=== PATIENT | female | born 1990 | race Caucasian/White ===

== ENCOUNTER 2016-10-07 10:52 | Emergency (ER) | payer OTHER ==
[~2016-10-07] VITALS: Ht 167.6 cm; Wt 80.7 kg
[2016-10-07] MEDS ORDERED: PRENTAB52 PO (11:00)
--- NOTE | 2016-10-07 12:31 | REP ---
Clinical: Trauma. Technique: AP, lateral, bilateral oblique views of the right ankle. Findings: Lateral soft tissue swelling consistent with inversion injury. No acute fracture or dislocation. Joint spaces and ankle mortise intact. Impression: Lateral swelling. No acute fracture or dislocation. Signed by David Flowers MD 10/07/2016 12:23 P
[2016-10-07] MEDS ORDERED: TYLE325C PO (12:37)
[2016-10-07] MEDS ORDERED: NAPR500T2 PO (12:37)
[2016-10-07] MEDS ORDERED: KETOROLAC 60 MG/2 ML VIAL (J1885) IM ONE (12:45)
[2016-10-07 13:05] VITALS: BP 134/79
== END 2016-10-07 13:32 | disposition home or self-care (01) ==
LOC: M ED 11:30
DX: S93.401A Sprain of unspecified ligament of right ankle, initial encounter (principal); X58.XXXA Exposure to other specified factors, initial encounter; Y92.019 Unspecified place in single-family (private) house as the place of occurrence of the external cause; Y93.89 Activity, other specified; Y99.8 Other external cause status; Z79.899 Other long term (current) drug therapy; Z88.5 Allergy status to narcotic agent
CPT/HCPCS: 73610; 96372; 99283; J1885

== ENCOUNTER → 2017-04-19 | Outpatient (REF) | payer OTHER ==
[~2017-04-19] MED LIST: NAPR500T3 PO; PRENTAB52 PO; TYLE325C PO
== END ==
LOC: M LAB REF 16:16
PROVIDERS: ATTEND Nurse Practitioner Family
DX: Z32.01 Encounter for pregnancy test, result positive (principal)

== ENCOUNTER → 2017-06-17 | Outpatient (CLI) | payer OTHER ==
[2017-06-17 14:57] LABS: MEAN CORPUSCULAR HEMOGLOBIN 29.7 pg (27.0-33.0); MEAN CORPUSCULAR HGB CONC 33.5 g/dl (32.0-36.5); MEAN CORPUSCULAR VOLUME 88.7 fl (80.0-96.0); PLATELET COUNT, AUTOMATED 326 10^3/uL (150-450); WHITE BLOOD COUNT 9.3 10^3/uL (4.0-10.0)
[2017-06-17 15:20] LABS: ALT/SGPT 38 U/L (12-78); AST/SGOT 15 U/L (7-37); BILIRUBIN,TOTAL 0.2 MG/DL (0.2-1.0); CREATININE FOR GFR 0.51 MG/DL (0.55-1.02); GLOMERULAR FILTRATION RATE > 60.0 (>60); URIC ACID 2.8 MG/DL (2.6-6.0)
== END ==
LOC: M LAB 14:26
PROVIDERS: ATTEND Obstetrics & Gynecology
DX: O16.1 Unspecified maternal hypertension, first trimester (principal)

== ENCOUNTER → 2017-07-23 | Outpatient (CLI) | payer OTHER | LOC: M RAD 16:08 | DX: O10.012 Pre-existing essential hypertension complicating pregnancy, second trimester (principal); Z3A.18 18 weeks gestation of pregnancy | CPT/HCPCS: 76811 ==

== ENCOUNTER → 2017-08-08 | Outpatient (CLI) | payer OTHER | LOC: M LAB 14:08 | DX: Z36.89 Encounter for other specified antenatal screening (principal); Z3A.00 Weeks of gestation of pregnancy not specified | CPT/HCPCS: 36415 ==

== ENCOUNTER → 2017-08-26 | Outpatient (CLI) | payer OTHER | LOC: M RAD 08:53 | DX: O10.012 Pre-existing essential hypertension complicating pregnancy, second trimester (principal) ==

== ENCOUNTER → 2017-09-17 | Outpatient (CLI) | payer OTHER ==
[2017-09-17 15:41] LABS: BASO % 0.4 % (0.0-1.0); EOS # 0.1 10^3/uL (0.0-0.50); EOS % 0.5 % (0.0-3.0); HEMATOCRIT 36.1 % (36.0-47.0); IMMATURE GRANULOCYTE % 0.5 % (0-3.0); LYMPH # 2.7 10^3/uL (1.5-6.5); LYMPH % 25.7 % (24.0-44.0); MEAN CORPUSCULAR HEMOGLOBIN 29.9 pg (27.0-33.0); MEAN CORPUSCULAR HGB CONC 33.2 g/dl (32.0-36.5); MEAN CORPUSCULAR VOLUME 89.8 fl (80.0-96.0); MONO # 0.6 10^3/uL (0.0-0.8); MONO % 5.7 % (0.0-5.0); NEUTROPHILS % 67.2 % (36.0-66.0); PLATELET COUNT, AUTOMATED 310 10^3/uL (150-450); RED BLOOD COUNT 4.02 10^6/uL (4.00-5.40); RED CELL DISTRIBUTION WIDTH 13.8 % (11.5-14.5); WHITE BLOOD COUNT 10.4 10^3/uL (4.0-10.0)
[2017-09-17 16:02] LABS: GLUCOSE CHALLENGE TEST 1 HOUR 129 MG/DL (LESS THAN 140)
== END ==
LOC: M LAB 14:06
DX: Z34.82 Encounter for supervision of other normal pregnancy, second trimester (principal)

== ENCOUNTER → 2017-11-29 | Outpatient (REF) | payer OTHER | LOC: M LAB REF 17:10 | DX: Z34.83 Encounter for supervision of other normal pregnancy, third trimester (principal) ==

== ENCOUNTER 2017-12-20 10:05 | Inpatient (IN) | payer OTHER ==
[2017-12-20] MEDS: miSOPROStol 50 MCG 1/2 TAB (S0191) PO ×2 (11:14→15:18)
[2017-12-20 11:25] LABS: HEMATOCRIT 40.4 % (36.0-47.0); HEMOGLOBIN 13.5 g/dl (12.0-15.5); MEAN CORPUSCULAR HEMOGLOBIN 28.4 pg (27.0-33.0); MEAN CORPUSCULAR HGB CONC 33.4 g/dl (32.0-36.5); MEAN CORPUSCULAR VOLUME 85.1 fl (80.0-96.0); PLATELET COUNT, AUTOMATED 289 10^3/uL (150-450); RED BLOOD COUNT 4.75 10^6/uL (4.00-5.40); RED CELL DISTRIBUTION WIDTH 14.1 % (11.5-14.5); WHITE BLOOD COUNT 9.7 10^3/uL (4.0-10.0)
[2017-12-20 11:54] LABS: ALT/SGPT 18 U/L (12-78); AST/SGOT 14 U/L (7-37); BILIRUBIN,TOTAL 0.3 MG/DL (0.2-1.0); CREATININE FOR GFR 0.71 MG/DL (0.55-1.30); GLOMERULAR FILTRATION RATE > 60.0 (>60); LDH LACTATE DEHYDROGENASE 181 U/L (84-246); URIC ACID 5.2 MG/DL (2.6-6.0)
[2017-12-20 12:25] LABS: CREATININE,RANDOM URINE 85.4 MG/DL
[2017-12-20 12:25] LABS: TOTAL PROTEIN,RANDOM URINE 10.8 MG/DL (0.0-12.0)
[2017-12-20] MEDS: LR 1,000 ML IV (19:12)
[2017-12-20] MEDS ORDERED: OXYTOCIN DRIP 30 UNITS in APPROPRIATE DILUENT 1 EA IV (19:15)
[2017-12-20 19:56] LABS: HEMATOCRIT 36.4 % (36.0-47.0); HEMOGLOBIN 12.3 g/dl (12.0-15.5); MEAN CORPUSCULAR HEMOGLOBIN 28.7 pg (27.0-33.0); MEAN CORPUSCULAR HGB CONC 33.8 g/dl (32.0-36.5); PLATELET COUNT, AUTOMATED 263 10^3/uL (150-450); RED BLOOD COUNT 4.28 10^6/uL (4.00-5.40); WHITE BLOOD COUNT 10.3 10^3/uL (4.0-10.0)
[2017-12-20] MEDS ORDERED: FENTANYL 2MCG/ML ROPIVACAINE 0.2% IN 0.9% NACL 200ML IVBAG As Ordered (21:06)
[2017-12-20] MEDS ORDERED: REFRIGERATOR IV KEYS XX (22:00)
[2017-12-20] MEDS ORDERED: ePHEDrine SULFATE 25 MG/5 ML(5MG/ML) SYRINGE IV (22:00)
[2017-12-20] MEDS ORDERED: FENTANYL/ROPIVACAINE/NACL BAG 200 ML EPIDURAL (22:00)
[2017-12-20] MEDS ORDERED: EPIDURAL/PCA KEYS XX (22:00)
[2017-12-20] MEDS ORDERED: ONDANSETRON 4MG/2ML VIAL (J2405) IV (22:00)
[2017-12-20] MEDS ORDERED: diphenhydrAMINE INJ 50MG/ML VIAL (J1200) IV (22:00)
[2017-12-20] MEDS ORDERED: LACTATED RINGER'S 1000 ML IV (22:00)
[2017-12-20] MEDS ORDERED: EPIDURAL COMMENT XX (22:00)
[2017-12-20] MEDS ORDERED: NALOXONE INJ 0.4 MG/1 ML VIAL (J2310) IV (22:00)
[2017-12-21] MEDS: LR 1,000 ML IV (03:12)
[2017-12-21 05:23] LABS: CORD GAS HCO3 A 19.5 MEQ/L; CORD GAS O2 SAT A 36.4 %; CORD GAS PCO2 A 56.7 mmHg; CORD GAS PH A 7.154 UNITS; CORD GAS PO2 A 21.4 mmHg; CORD GAS SBC A 15.4 MEQ/L; CORD GAS TCO2 A 21.2 MEQ/L
[2017-12-21 05:24] LABS: CORD GAS ABE V -10.7; CORD GAS HCO3 V 16.7 MEQ/L; CORD GAS O2 SAT V 40.7 %; CORD GAS PCO2 V 42.5 mmHg; CORD GAS PH V 7.213 UNITS; CORD GAS PO2 V 20.9 mmHg
[2017-12-21] MEDS ORDERED: RHOGAM 300 MCG (1500 IU) INJ (J2790) IM (06:30)
[2017-12-21] MEDS ORDERED: MEASLES,MUMPS,RUBELLA VACCINE INJ (MMR-II) (90707) SC (06:30)
[2017-12-21] MEDS ORDERED: METHYLERGONOVINE MALEATE 0.2 MG TAB PO (06:30)
[2017-12-21] MEDS ORDERED: DIBUCAINE 1% OINTMENT 30GM TOP (06:30)
[2017-12-21] MEDS ORDERED: DOCUSATE SODIUM 100 MG CAP PO (06:30)
[2017-12-21] MEDS ORDERED: ANUSOL HC CREAM 30GM TOP (08:30)
[2017-12-21] MEDS: ACETAMINOPHEN 500 MG TAB PO (08:36)
[2017-12-21] MEDS: PRENATAL VITAMINS CHEWABLE TABLET PO (09:55)
[2017-12-21] MEDS: IBUPROFEN 600 MG TAB PO ×2 (13:48→20:01)
[2017-12-22] MEDS: IBUPROFEN 600 MG TAB PO ×3 (05:31→21:37)
[2017-12-22] MEDS: OXYTOCIN DRIP 30 UNITS in APPROPRIATE DILUENT 1 EA IV (06:25)
[2017-12-22] MEDS: PRENATAL VITAMINS CHEWABLE TABLET PO (10:33)
[2017-12-22] MEDS: ACETAMINOPHEN 500 MG TAB PO (15:46)
[2017-12-23] MEDS: IBUPROFEN 600 MG TAB PO (05:37)
[2017-12-23] MEDS: PRENATAL VITAMINS CHEWABLE TABLET PO (08:34)
== END 2017-12-23 10:55 | disposition home or self-care (01) | DRG 774 ==
LOC: M LDI 10:05 → M OBS 12-21 09:46
PROC: 3E0P7GC Introduction of Other Therapeutic Substance into Female Reproductive, Via Natural or Artificial Opening (ICD-10-PCS; 2017-12-20)
PROC: 10E0XZZ Delivery of Products of Conception, External Approach (ICD-10-PCS; principal; 2017-12-21)
PROC: 0KQM0ZZ Repair Perineum Muscle, Open Approach (ICD-10-PCS; 2017-12-21)
DX: O10.02 Pre-existing essential hypertension complicating childbirth (principal); Z3A.39 39 weeks gestation of pregnancy; O70.1 Second degree perineal laceration during delivery; Z37.0 Single live birth